=== PATIENT | female | born 1975 | race Two or more races ===

== ENCOUNTER 2024-06-03 19:52 | Emergency (ER) | payer OTHER ==
[2024-06-03 20:31] LABS: Basophils # (auto) 0.1 10 ^3/uL (0-0.2); Eosinophils # (auto) 0.3 10 ^3/uL (0-0.8); Lymphocytes # (auto) 2.5 10 ^3/uL (0.4-5.4); Monocytes # (auto) 0.4 10 ^3/uL (0-1.3); Monocytes % (auto) 4.8 % (0.0-12.0)
[2024-06-03 20:33] LABS: Basophils % (auto) 1.1 % (0.0-2.0); Eosinophils % (auto) 3.6 % (0.0-7.0); Hematocrit 36.1 % (36.0-46.0); Hemoglobin 11.9 g/dL (12.2-16.2); Lymphocytes % (auto) 27.5 % (10.0-50.0); Mean Corpuscular Hemoglobin 25.8 pg (28.0-32.0); Mean Corpuscular Hgb Conc. 32.9 g/dL (32.0-36.0); Mean Corpuscular Volume 78.3 fL (80.0-100.0); Neutrophils # (auto) 5.7 10 ^3/uL (1.6-8.6); Red Blood Cells 4.61 10^6/uL (4.0-5.20)
[2024-06-03 20:52] LABS: Alanine Aminotransferase 20 U/L (7-40); Albumin 4.1 g/dL (3.2-4.8); Alkaline Phosphatase 83 U/L (46-116); Anion Gap 4 (5-15); Aspartate Aminotransferase 19 U/L (13-40); BUN/Creatinine Ratio 12.3 (10.0-20.0); Blood Urea Nitrogen 10 mg/dL (9-23); Calcium 9.7 mg/dL (8.7-10.4); Carbon Dioxide 26 mmol/L (20-30); Chloride 108 mmol/L (98-107); Glucose 196 mg/dL (74-106); Potassium 3.7 mmol/L (3.5-5.1); Sodium 138 mmol/L (136-145)
[2024-06-03 20:53] LABS: Bilirubin, Total 0.3 mg/dL (0.2-1.0); Total Protein 6.7 g/dL (5.7-8.2)
[2024-06-03 21:10] LABS: Lipase 39 U/L (12-53)
[2024-06-03] MEDS: OMNIPAQUE 12mg/ml 500ml ORAL SOLUTION PO ONE (22:46)
[2024-06-03 22:47] VITALS: TEMP 97.9
[2024-06-03] MEDS: IOHEXOL 300 MG/ML 100ML BOTTLE IJ ONE (22:47)
[2024-06-03 23:00] VITALS: PULSE 78; RESP 18; O2SAT 96
[2024-06-03 23:38] LABS: Urine Blood Negative /uL (Negative); Urine Clarity Clear (Clear); Urine Color Yellow (Yellow); Urine Protein, UAD Negative (Negative); Urine Specific Gravity 1.027 (1.001-1.035); Urine Urobilinogen 2 mg/dL (Negative)
[2024-06-03] MEDS: ONDANSETRON HCL 4 MG/2 ML VIAL IV ONE (23:41)
[2024-06-04 05:07] VITALS: BP 149/86; PULSE 68; RESP 16; O2SAT 97
[2024-06-04] MEDS ORDERED: PANT40TA2 PO (05:16)
== END 2024-06-04 05:19 | disposition home or self-care (01) ==
LOC: ER 19:52
DX: R10.12 Left upper quadrant pain (principal); Z98.890 Other specified postprocedural states; Z88.8 Allergy status to other drugs, medicaments and biological substances
CPT/HCPCS: 36415; 74176; 74177; 80053; 81003; 83690; 85025; 96374; 99285; J2405; Q9967